=== PATIENT | female | born 1940 | race Caucasian/White ===

== ENCOUNTER 2018-09-08 11:12 | Emergency (ER) | payer MEDICARE ==
[2018-09-08] MEDS ORDERED: Tetan/Diph/Pertus SYR(Tdap)* 0.5 ML SYR(BOOSTRIX) use SYR IM ONE (11:48)
--- NOTE | 2018-09-08 11:57 | UC ---
Skin Complaint HPI - HPI Summary HPI Summary: 78-year-old woman comes in with a chief complaint of laceration to her right fifth finger. She cut it on a table saw. Her daughter is a veterinary and cleaned it out and wrapped it. Patient reports she's got full range of motion no loss of sensation. She is not up-to-date on her tetanus shot. - History of Current Complaint Chief Complaint: UCLaceration Time Seen by Provider: 09/08/18 11:48 Stated Complaint: FINGER LAC Pain Intensity: 3 - Allergy/Home Medications Allergies/Adverse Reactions: Allergies Allergy/AdvReac Type Severity Reaction Status Date / Time No Known Allergies Allergy Verified 09/08/18 12:24 Home Medications: Home Medications Amitriptyline TAB* [Elavil TAB*] 10 mg PO BEDTIME 09/08/18 [History Confirmed ] Diclofenac 1% GEL (NF) [Voltaren 1% GEL (NF)] 1 applic TOPICAL DAILY 09/08/18 [ History Confirmed 09/08/18] Levothyroxine TAB* [Synthroid TAB*] 100 mcg PO DAILY 09/08/18 [History Confirmed 09/08/18] Lisinopril 20 mg PO DAILY WITH MEAL 09/08/18 [History Confirmed 09/08/18] Omeprazole CAP (NF) [Prilosec CAP* 20 MG] 20 mg PO DAILY 09/08/18 [History Confirmed 09/08/18] Oxycodone HCl 5 mg PO DAILY WITH MEAL 09/08/18 [History Confirmed 09/08/18] Simvastatin TAB(NF) [Zocor(NF)] 10 mg PO 1700 09/08/18 [History Confirmed ] hydroCHLOROthiazide [Hydrochlorothiazide] 12.5 mg PO DAILY WITH MEAL 09/08/18 [ History Confirmed 09/08/18] PMH/Surg Hx/FS Hx/Imm Hx Previously Healthy: Yes - Surgical History Surgical History: Yes - Family History Known Family History: Positive: Non-Contributory - Social History Alcohol Use: None Substance Use Type: None Smoking Status (MU): Never Smoked Tobacco Review of Systems All Other Systems Reviewed And Are Negative: Yes Constitutional: Positive: Negative Skin: Positive: Other - SEE HPI Eyes: Positive: Negative ENT: Positive: Negative Respiratory: Positive: Negative Gastrointestinal: Positive: Negative Motor: Positive: Negative Neurovascular: Positive: Negative Musculoskeletal: Positive: Negative Neurological: Positive: Negative Psychological: Positive: Negative Is Patient Immunocompromised?: No Physical Exam Triage Information Reviewed: Yes Appearance: Well-Appearing, No Pain Distress, Well-Nourished Vital Signs: Initial Vital Signs Temp 98.3 F 09/08/18 11:48 Pulse 73 09/08/18 11:48 Resp 17 09/08/18 11:48 BP 191/81 09/08/18 11:48 Pulse Ox 99 09/08/18 11:48 Vital Signs Reviewed: Yes Eye Exam: Normal Eyes: Positive: Conjunctiva Clear Neck: Positive: Supple Respiratory: Positive: No respiratory distress Musculoskeletal: Positive: Strength Intact, ROM Intact Neurological: Positive: Alert, Muscle Tone Normal Psychological Exam: Normal Psychological: Positive: Normal Response To Family, Age Appropriate Behavior Skin: Positive: Other - RT 5TH FINGER OVER THE MIDDLE PHALANYX SC LACERATION ON DORSUM 1.5CM X 0.5CM. FINGER FROM, FULL STRENGTH. DISTALLY NL CAP REFILL AND SENSATION. Course/Dx - Course Course Of Treatment: I RECOMMENDED AN X-RAY; THE PATIENT DECLINED. I PLACED GEL FOAM OVER THE WOUND IT IS TOO WIDE FOR SUTURE REPAIR. ABX OINTMENT AND DRESSING APPLIED. START KEFLEX PO. TDAP GIVEN F/U WITH [facility]THOPEDICS HAND[facility]. - Diagnoses Provider Diagnosis: Laceration of right little finger Discharge - Sign-Out/Discharge Documenting (check all that apply): Patient Departure All imaging exams completed and their final reports reviewed: No Studies - Discharge Plan Condition: Stable Disposition: HOME Prescriptions: Cephalexin CAP* [Keflex CAP*] 500 mg PO TID #21 cap Patient Education Materials: Laceration (ED) Referrals: Verónica Esparza MD [Medical Doctor] - Additional Instructions: FOLLOW UP WITH DR ESPARZA, THE ORTHOPEDIC HAND SPECIALIST. YOU WERE GIVEN A TDAP (TETANUS) SHOT TODAY. GET RECHECKED SOONER IF YOUR CONDITION WORSENS; SIGNS OF INFECTION OR ANY QUESTIONS OR CONCERNS. - Billing Disposition and Condition Condition: STABLE Disposition: Home
[2018-09-08] MEDS ORDERED: Gelfoam 12-7 ADSORBABL SPONGE* 1 EA SPONGE TOPICAL ONE (12:33)
== END 2018-09-08 13:08 | disposition home or self-care (01) ==
LOC: UCEAST 11:12
DX: S61.216A Laceration without foreign body of right little finger without damage to nail, initial encounter (principal); W31.2XXA Contact with powered woodworking and forming machines, initial encounter; Y92.9 Unspecified place or not applicable
CPT/HCPCS: 90471; 90715; 99203; A9270-GY; G0463